=== PATIENT | female | born 1995 | race Caucasian/White ===

== ENCOUNTER 2023-10-15 12:07 | Emergency (ER) | payer MEDICAID, SELFPAY ==
[2023-10-15 12:25] VITALS: BP 110/62; PULSE 78; RESP 20; TEMP 36.6; O2SAT 96; BMI 22.8
--- NOTE | 2023-10-15 13:11 | EXP.UTC ---
Discharge Plan Disposition Patient Disposition: Home, Self-Care Condition: Good Prescriptions Prescriptions: New mupirocin 2 % ointment 1 applic topical TID 10 Days Qty: 22 0RF Rx Instructions: apply to wound as directed cephalexin 500 mg capsule 500 mg PO QID 7 Days Qty: 28 0RF No Action norgestimate-ethinyl estradiol [Sprintec (28)] 0.25-35 mg-mcg tablet 1 tab PO DAILY prazosin 1 mg capsule 1 mg PO DAILY paroxetine HCl 40 mg tablet 40 mg PO DAILY Referrals Follow up/Referrals: Provider,Referral, MD [Primary Care Provider] - See instructions Activity Restrictions/Add. Instructions Additional Instructions/Restrictions: Clean wound well with antibacterial soap and water and pat dry Take oral antibiotics as prescribed Use topical antibiotics as presribed Follow up with your Family Doctor if no improvement or any worsening of symptoms Clinical Impressions Clinical Impression: Wound infection Instructions Patient Instructions: Cephalexin, Mupirocin Discharge ED Provider: Fior Clemons [facility] [place] General Stated complaint: laceration in between R index and middle finger Mode of Arrival: Ambulatory Source of Information: Patient Limitations: No Limitations Time Seen by Provider: 10/15/23 13:11 Description of Symptoms (Recalled from Triage Doc. by RN): PATIENT C/O LACERATION BETWEEN INDEX AND MIDDLE FINGER ON RIGHT HAND THAT IS INFECTED. SHE STATES SHE CUT IT WHILE USING SCISSORS 3-4 DAYS AGO HEENT Symptoms (Recalled from RN notes): No Resp Symptoms (Recalled from RN notes): No Skin Symptoms (Recalled from RN notes): Yes MS Symptoms (Recalled from RN notes): No Functional Status (Recalled from RN notes): WNL History of Present Illness Provider Complaint: Patient states that about 3-4 days ago she cut in between her right index and middle finger with a pair of scissors States that now it is red and she thinks it may be infected Related Data Home Medications Medication Instructions Recorded Confirmed norgestimate 0.25 mg-ethinyl 1 tab PO DAILY 10/15/23 10/15/23 estradiol 35 mcg tablet (Sprintec (28)) paroxetine HCl 40 mg tablet 40 mg PO DAILY 10/15/23 10/15/23 prazosin 1 mg capsule 1 mg PO DAILY 10/15/23 10/15/23 Previous Rx's Medication Instructions Recorded cephalexin 500 mg capsule 500 mg PO QID 7 days #28 caps 10/15/23 mupirocin 2 % topical ointment 1 applic topical TID 10 days #22 10/15/23 grams Allergies Allergy/AdvReac Type Severity Reaction Status Date / Time No Known Allergies Allergy Verified 10/15/23 12:43 Worker's Comp Is this a Worker's Comp case?: [facility]: The information contained in this section may have been updated after the patient was seen, as this information can be updated by other users. Medical History (Updated 10/15/23 @ 13:20 by Fior Clemons APRN) Anemia Anxiety Depression GERD (gastroesophageal reflux disease) PTSD (post-traumatic stress disorder) UTI (urinary tract infection) Social History Smoking Status: Unknown if ever smoked alcohol intake: never current occupational status: employed Travel in the last 8 weeks: None ROS Obtained: Yes All systems reviewed & no additional complaints except as documented and Yes Systems reviewed as appropriate & no additional complaints except as documented Constitutional Constitutional: Reports system reviewed and no additional complaints, except as documented and Reports as per HPI Cardiovascular Cardiovascular: Reports system reviewed and no additional complaints, except as documented and Reports as per HPI Respiratory Respiratory: Reports system reviewed and no additional complaints, except as documented and Reports as per HPI Gastrointestinal Gastrointestingal: Reports system reviewed and no additional complaints, except as documented and as per HPI Musculoskeletal Musculoskeletal: Reports system reviewed and no additional complaints, except as documented and Reports as per HPI Integumentary/Breasts Skin/Breast: Reports system reviewed and no additional complaints, except as documented and Reports as per HPI Comments: infected cut between right index finger and middle finger Physical Exam General General appearance: alert and in no apparent distress ENT ENT exam: Present mucous membranes moist Respiratory Respiratory exam: Present normal lung sounds bilaterally; Absent respiratory distress or wheezes Cardiovascular Cardiovascular exam: Present regular rate, normal rhythm and normal heart sounds Expanded Upper Extremity Exam Right: Hand L/R back image: 1. redness with mild drainage noted Neurological Exam Neurological exam: Present alert, oriented X3 and normal gait Medical Decision Making Bryant Inquiry Pt receiving controlled substance: No Bryant was queried for this patient: No Vital Signs: 10/15/23 12:25 Temperature 97.9 F Temperature Source Oral Pulse Rate [Left Brachial] 78 Respiratory Rate 20 Blood Pressure [Left Arm] 110/62 Blood Pressure Mean [Left Arm] 78 Blood Pressure Source [Left Arm] Automatic Cuff Blood Pressure Position [Left Arm] Sitting 02 Sat by Pulse Oximetry 96 Oxygen Delivery Method Room Air Medical Decision Narrative: wound appears to be inflammed and was in need of suturing but now 4days out from injury and infection will allow to close naturally
[2023-10-15 13:18] VITALS: BP 110/62; PULSE 78; RESP 20; TEMP 36.6; O2SAT 96
== END 2023-10-15 13:27 | disposition home or self-care (01) ==
PROVIDERS: Emergency Provider Nurse Practitioner
DX: S61.411A Laceration without foreign body of right hand, initial encounter (principal); L08.9 Local infection of the skin and subcutaneous tissue, unspecified; W27.2XXA Contact with scissors, initial encounter
CPT/HCPCS: 99204; 99212; G0463